=== PATIENT | female | born 1940 | race Caucasian/White ===

== ENCOUNTER → 2024-07-26 13:55 | Outpatient (REF) | payer OTHER, SELFPAY | LOC: HWRAD 13:55 | PROVIDERS: ATTENDING PHYSICIAN Family Medicine | DX: E04.1 Nontoxic single thyroid nodule (principal); M25.512 Pain in left shoulder; M54.9 Dorsalgia, unspecified | CPT/HCPCS: 72072; 73030; 76536 ==

== ENCOUNTER → 2024-07-30 11:11 | Outpatient (REF) | payer OTHER, SELFPAY | LOC: HWRAD 11:11 | PROVIDERS: ATTENDING PHYSICIAN Family Medicine | DX: R07.9 Chest pain, unspecified (principal) | CPT/HCPCS: 71046 ==

== ENCOUNTER → 2025-01-06 13:21 | Outpatient (REF) | payer OTHER, SELFPAY | LOC: HWRAD 13:21 | PROVIDERS: ATTENDING PHYSICIAN Family Medicine | DX: R55 Syncope and collapse (principal); R53.83 Other fatigue | CPT/HCPCS: 70450 ==